=== PATIENT | male | born 1965 | race Caucasian/White ===

== ENCOUNTER → 2018-08-14 | Outpatient (CLI) | payer BC, OTHER ==
--- NOTE | 2018-08-14 14:29 | PCVCIMAG ---
APPROVED REPORT Study performed: 08/14/2018 13:05:37 Exam: Stress Echocardiogram Indication: CP, ABN Treadmill, HLD, Fam HX CAD Patient Location: Echo lab Stress Nurse: Clari Rocha RN Status: routine Ht: 5 ft 11 in HR: 72 bpm BP: 136/84 mmHg Rhythm: NSR Procedure The patient underwent an Exercise Stress Test using the Truong Protocol. Blood pressure, heart rate, and EKG were monitored. An Echocardiogram was performed by proof technician in four stages in quad fashion. At peak stress, four selected images were obtained and placed side by side with resting images for comparison. Stress Test Details Stress Test: Exercise stress testing was performed using a Truong protocol. HR Resting HR: 72 bpmMax Heart Rate (APMHR): 165 bpm Max HR Achieved: 171 bpmTarget HR (85% APMHR): 140 bpm % of APMHR: 103 Recovery HR: 126 bpm HR response to stress: Normal HR response to stress BP Resting BP: 136/84 mmHg Max BP: 186/84 mmHg Recovery BP: 146/72 mmHg BP response to stress: Normal blood pressure response to stress. ECG Resting ECG: Sinus Rhythm Stress ECG: Sinus Rhythm Arrhythmia: None Recovery ECG: Sinus Rhythm Clinical Reason for Termination: Maximal effort Exercise duration: 12 min 01 sec Highest Stage Achieved: Stage 4: 4.2 mph at 16% grade. Exercise capacity: 13.70 METs Overall Exercise Capacity for Age: Good Stress ECG Conclusion ECG: Non-ischemic Clinical: Non-ischemic Pre-Stress Echo The resting Echocardiogram showed normal left ventricular contractility with an estimated Ejection Fraction of about >55%. Normal wall motion in all segments on baseline images. Post-Stress Echo The stress Echocardiogram showed normal left ventricular contractility with an estimated Ejection Fraction of about 60-65%. Normal augmentation of wall motion in all segments on post stress images. Clinical No clinical or ECG evidence for ischemia. Conclusion Clinical Response: Non-ischemic Exercise Capacity: Superior Stress ECG Response: Non-ischemic Stress Echo Images: Non-ischemic Other Information Study Quality: Adequate
== END | disposition home or self-care (01) ==
LOC: PCVCIMAG 12:49
PROVIDERS: ATTEND Internal Medicine Cardiovascular Disease
DX: E78.5 Hyperlipidemia, unspecified (principal); Z82.49 Family history of ischemic heart disease and other diseases of the circulatory system
CPT/HCPCS: 93325; 93351